=== PATIENT | female | born 1950 | race Caucasian/White ===

== ENCOUNTER → 2020-08-05 | Outpatient (CLI) | payer MEDICARE, OTHER ==
[~2020-08-05] MED LIST: ALENDRONATE SOD70 MG PO; CALCIUM500 M1 PO; GLUCOPHAGE500 MG PO; LEVOTHYROXINE100 MCG PO; VITAMIN D 40400 UNIT PO
== END ==
LOC: KOH-I 07-12 10:00
DX: R91.8 Other nonspecific abnormal finding of lung field (principal); R91.1 Solitary pulmonary nodule
CPT/HCPCS: 71250